=== PATIENT | female | born 1995 | race Two or more races ===

== ENCOUNTER → 2020-01-15 | Day surgery (SDC) | payer OTHER ==
[~2020-01-15] VITALS: Ht 154.9 cm; Wt 59.0 kg
[~2020-01-15] MED LIST: ACETAMINOPHEN IV 100 ML IV ONE; ACETAMINOPHEN IV 1000 MG/100ML (10MG/ML) IV ONE; BUPIVACAINE 0.25% INJ 50ML VIAL ONE; FERR-7 PO; HYDROmorphone HCL 2 MG/ML VL ONE; KETOROLAC TROMETH 30 MG/ML 1ML VIAL IV ONE; KETOROLAC TROMETH 30 MG/ML 1ML VIAL ONE; LIDOCAINE 1% HCL (LOCAL ANESTH.) INJ 20ML MDV ONE; MAGN250T22 PO; METOCLOPRAMIDE HCL 5MG/ml INJ 2ml VIAL IV PRN; MIDAZOLAM HCL 1MG/1ML-2 ML VIAL IV ONE; MIDAZOLAM HCL 1MG/1ML-2 ML VIAL ONE; MORPHINE SULF INJ 2 MG/ML SYRINGE 1ML ONE; MORPHINE SULFATE 4 MG/ML SYR/VIAL IV PRN; ONDANSETRON HCL 4 MG/2 ML VIAL IV ONE; ONDANSETRON HCL 4 MG/2 ML VIAL ONE; PROPOFOL 10 MG/ML 20 ML IV ONE; RIBO100T3 PO; SODIUM CHLORIDE LOCK 10 ML ONE; SUCCINYLCHOLINE CHLORIDE 20 MG/ML 10ML VIAL IV ONE; ceFAZolin 1GM/50ML 50 ML IV ONE; fentaNYL CITRATE 100 MCG/2 ML VL IV ONE; fentaNYL CITRATE 100 MCG/2 ML VL IV PRN; fentaNYL CITRATE 100 MCG/2 ML VL ONE
[2020-01-15] MEDS: HYDROmorphone HCL 2 MG/ML VL IV PRN ×2 (08:05→08:26)
[2020-01-15 09:10] VITALS: BP 143/92
== END | disposition home or self-care (01) ==
LOC: SUR 06:01
PROVIDERS: ATTEND Orthopaedic Surgery Adult Reconstructive Orthopaedic Surgery
DX: M67.432 Ganglion, left wrist (principal); I49.9 Cardiac arrhythmia, unspecified; Z11.59 Encounter for screening for other viral diseases; Z79.899 Other long term (current) drug therapy; Z98.890 Other specified postprocedural states; Z20.828 Contact with and (suspected) exposure to other viral communicable diseases
CPT/HCPCS: 25111; 88304; J0131; J0330; J0690; J1170; J1885; J2001; J2250; J2270; J2405; J2704; J3010; J3490; U0003